=== PATIENT | female | born 1965 | race Caucasian/White ===

== ENCOUNTER 2020-11-21 21:00 | Emergency (ER) | payer OTHER ==
[~2020-11-21] VITALS: Ht 165.1 cm; Wt 76.7 kg
[~2020-11-21 21:00] MED LIST: AMOXICILLIN500 MG PO; CIPROFLOXACIN500 MG PO; DARVOCET N 1001 TAB PO; MOTRIN800 MG PO; ROBITUSSIN DM120 ML PO
[2020-11-21] MEDS ORDERED: AMLODIPINE BESYL5 MG PO (21:15)
== END 2020-11-21 22:17 | disposition home or self-care (01) ==
LOC: ED 21:00
DX: S42.214A Unspecified nondisplaced fracture of surgical neck of right humerus, initial encounter for closed fracture (principal); S80.211A Abrasion, right knee, initial encounter; Z79.2 Long term (current) use of antibiotics; Z79.899 Other long term (current) drug therapy; W19.XXXA Unspecified fall, initial encounter; Y93.89 Activity, other specified; Y92.89 Other specified places as the place of occurrence of the external cause; Y99.8 Other external cause status